=== PATIENT | male | born 1965 | race African-American/Black ===

== ENCOUNTER 2018-04-24 08:36 | Inpatient (IN) | payer OTHER ==
--- NOTE | 2018-04-24 09:26 | ER Document Report ---
ED General - General Chief Complaint: Abnormal Lab Results Stated Complaint: ABNORMAL LABS Time Seen by Provider: 04/24/18 08:59 TRAVEL OUTSIDE OF THE [place] IN LAST 30 DAYS: No - HPI Patient complains to provider of: Abnormal laboratory results Notes: Patient states that he sees GI specialist Dr. Lozoya had outpatient laboratory studies performed showing anemia and was told to come to the ER for blood transfusion. Patient states a history of anemia in the past requiring iron s tates that his PCP placed him on [id number] iron patient states he has been noticing a little bit of blood in stool and does have an appointment for a colonoscopy to be performed by Dr. Lozoya on Tuesday patient otherwise denies any overt dizziness weakness denies any chest pain abdominal pain. Patient states symptoms ongoing for greater than a week with the noticing of blood in his stool. Patient resting company upon my evaluation of fevers chills nausea vomiting diarrhea - Related Data Allergies/Adverse Reactions: No Known Allergies Allergy (Unverified 04/24/18 08:38) Past Medical History - Social History Smoking Status: Never Smoker Chew tobacco use (# tins/day): No Frequency of alcohol use: None Drug Abuse: None Family History: Reviewed & Not Pertinent Patient has suicidal ideation: No Patient has homicidal ideation: No Renal/ Medical History: Denies: Hx Peritoneal Dialysis Review of Systems - Review of Systems Constitutional: Other - Abnormal labs EENT: No symptoms reported Cardiovascular: No symptoms reported Respiratory: No symptoms reported Gastrointestinal: See HPI Genitourinary: No symptoms reported Male Genitourinary: No symptoms reported Musculoskeletal: No symptoms reported Skin: No symptoms reported Hematologic/Lymphatic: No symptoms reported Neurological/Psychological: No symptoms reported -: Yes All other systems reviewed and negative Physical Exam - Vital signs Vitals: Temp Pulse Resp BP Pulse Ox 98.4 F 83 16 123/59 L 100 04/24/18 08:41 04/24/18 08:41 04/24/18 08:41 04/24/18 08:41 04/24/18 08:41 Interpretation: Normal - General General appearance: Appears well, Alert - HEENT Head: Normocephalic, Atraumatic Eyes: Normal Pupils: PERRL - Respiratory Respiratory status: No respiratory distress Chest status: Nontender Breath sounds: Normal Chest palpation: Normal - Cardiovascular Rhythm: Regular Heart sounds: Normal auscultation Murmur: No - Abdominal Inspection: Normal Distension: No distension Bowel sounds: Normal Tenderness: Nontender Organomegaly: No organomegaly - Back Back: Normal, Nontender - Extremities General upper extremity: Normal inspection, Nontender, Normal color, Normal ROM, Normal temperature General lower extremity: Normal inspection, Nontender, Normal color, Normal ROM, Normal temperature, Normal weight bearing. No: Katty's sign - Neurological Neuro grossly intact: Yes Cognition: Normal Orientation: AAOx4 Judit Coma Scale Eye Opening: Spontaneous Judit Coma Scale Verbal: Oriented Sandstone Coma Scale Motor: Obeys Commands Sandstone Coma Scale Total: 15 Speech: Normal Motor strength normal: LUE, RUE, LLE, RLE Sensory: Normal - Psychological Associated symptoms: Normal affect, Normal mood - Skin Skin Temperature: Warm Skin Moisture: Dry Skin Color: Normal Course - Re-evaluation Re-evalutation: 04/24/18 09:26 Laboratory studies will be obtained will consult with Dr. Lozoya for a plan. 04/24/18 14:52 Hemoglobin returned at 5. Discussed with Dr. talon Cummings recommend admission to the hospital as he will scope the patient more likely next 24 hours. Patient agrees this plan discussed with Dr. Gilbert agrees with admission - Vital Signs Vital signs: Temp Pulse Resp BP Pulse Ox 98.6 F 77 19 106/77 100 04/24/18 13:57 04/24/18 14:31 04/24/18 14:31 04/24/18 14:30 04/24/18 14:31 - Laboratory Result Diagrams: 04/24/18 09:05 04/24/18 09:05 Laboratory results interpreted by me: 04/24/18 04/24/18 04/24/18 09:05 09:05 09:05 RBC 2.21 L Hgb 5.0 L* Hct 16.8 L MCV 76 L MCH 22.7 L MCHC 29.9 L RDW 16.8 H Retic Count (auto) 6.14 H Absolute Retic 0.136 H APTT TIBC 497 H Ferritin 5.45 L Crossmatch See Detail 04/24/18 09:05 RBC Hgb Hct MCV MCH MCHC RDW Retic Count (auto) Absolute Retic APTT 22.1 L TIBC Ferritin Crossmatch Discharge - Discharge Clinical Impression: Anemia requiring transfusions GI bleed Qualifiers: GI bleed type/associated pathology: unspecified gastrointestinal hemorrhage type Qualified Code(s): K92.2 - Gastrointestinal hemorrhage, unspecified Condition: Good Disposition: ADMITTED INPATIENT [facility] Unit Admitted: Telemetry
[2018-04-24 09:30] LABS: ABSOLUTE RETICS # 0.136 10^6/uL (0.028-0.122); HEMATOCRIT 16.8 % (37.9-51.0); MEAN CORPUSCULAR HEMOGLOBIN 22.7 pg (27.0-33.4); MEAN CORPUSCULAR HGB CONC 29.9 g/dL (32.0-36.0); MEAN CORPUSCULAR VOLUME 76 fl (80-97); PLATELET COUNT 426 10^3/uL (150-450); RED BLOOD COUNT 2.21 10^6/uL (4.35-5.55); RED CELL DISTRIBUTION WIDTH 16.8 % (11.5-14.0); RETICULOCYTE COUNT (AUTO) 6.14 % (0.66-2.85); WHITE BLOOD COUNT 6.1 10^3/uL (4.0-10.5)
[2018-04-24 09:40] LABS: ANION GAP 8 (5-19); BLOOD UREA NITROGEN 15 mg/dL (7-20); CALCIUM 9.3 mg/dL (8.4-10.2); CARBON DIOXIDE 28 mmol/L (22-30); CHLORIDE 105 mmol/L (98-107); GLUCOSE 102 mg/dL (75-110); IRON(TIBC) 145.4 ug/dL (49-181); POTASSIUM 4.7 mmol/L (3.6-5.0); SODIUM 141.1 mmol/L (137-145)
[2018-04-24 09:47] LABS: INTERNATIONAL RATION (INR) 1.02; PROTHROMBIN TIME 13.9 SEC (11.4-15.4)
[2018-04-24 09:48] LABS: PARTIAL THROMBOPLASTIN TIME 22.1 SEC (23.5-35.8)
[2018-04-24 09:49] LABS: ABSOLUTE LYMPHOCYTES# (MANUAL) 1.3 10^3/uL (0.5-4.7); ABSOLUTE MONOCYTES # (MANUAL) 0.5 10^3/uL (0.1-1.4); ABSOLUTE NEUTROPHILS# (MANUAL) 4.3 10^3/uL (1.7-8.2); BASOPHILS % (MANUAL) 0 % (0-2); EOSINOPHILS % (MANUAL) 0 % (0-6); LYMPHOCYTES % (MANUAL) 21 % (13-45); MONOCYTES % (MANUAL) 9 % (3-13); NUCLEATED RED BLOOD CELLS 3 /100 WBC (0); SEGMENTED NEUTROPHILS % (MAN) 70 % (42-78); TOTAL CELLS COUNTED 100
[2018-04-24 09:51] LABS: ANISOCYTOSIS 1+; HYPOCHROMASIA 2+; POLYCHROMASIA 1+
[2018-04-24 09:52] LABS: OVALOCYTES SLIGHT; POIKILOCYTOSIS SLIGHT; SCHISTOCYTES SLIGHT
[2018-04-24 09:53] LABS: PLATELET COMMENT ADEQUATE
[2018-04-24] MEDS ORDERED: NORMAL SALINE 250 ML IV PRN ×2 (09:53)
[2018-04-24 10:18] LABS: FERRITIN 5.45 ng/mL (17.9-464.0)
[2018-04-24 10:49] LABS: FOLATE > 20.00 ng/mL (>2.76)
[2018-04-24] MEDS ORDERED: PANTOPRAZOLE SODIUM 40 MG VIAL IV ONE (11:03)
[2018-04-24] MEDS ORDERED: OXYCODONE-ACETAMINOPHEN 5-325 MG TABLET PO PRN (11:21)
[2018-04-24] MEDS ORDERED: ONDANSETRON HCL INJ/PF 4 MG/2 ML SDV IV PRN (11:21)
--- NOTE | 2018-04-24 11:42 | PDOC H&P ---
History of Present Illness Admission Date/PCP: 04/24/18 11:23 History of Present Illness: JULIO JARA JR is a 52 year old male with history of GI bleed, anemia status post EGD and colonoscopy in 2008 as per the patient no obvious cause of bleed was found at that time came to the emergency room today with complaints of passing bright colored blood for the last 3 days. Denies he is using denies using aspirin or ibuprofen. He is saying he was little bit nauseated and a little bit dizzy and constipated. Denies any other complaints. The emergency room hemoglobin was found to be 5 3 units of blood transfusion was ordered medical consult was called for admission Dr. Lozoya his desktop support consultant is aware of the patient's admission. Social History Smoking Status: Never Smoker Frequency of Alcohol Use: None Hx Recreational Drug Use: No Hx Prescription Drug Abuse: No - Advance Directive Resuscitation Status: Full Code Family History Family History: Reviewed & Not Pertinent Parental Family History Reviewed: Yes Children Family History Reviewed: Yes Sibling(s) Family History Reviewed.: Yes Medication/Allergy Allergies/Adverse Reactions: No Known Allergies Allergy (Unverified 04/24/18 08:38) Review of Systems Constitutional: ABSENT: fever(s), weakness Eyes: ABSENT: visual disturbances Ears: ABSENT: hearing changes Cardiovascular: ABSENT: edema Respiratory: ABSENT: dyspnea Gastrointestinal: PRESENT: abdominal pain, constipation, nausea, other - Blood per rectum. ABSENT: diarrhea, dysphagia, melena, vomiting Neurological: ABSENT: abnormal gait, abnormal speech, confusion, dizziness, focal weakness, syncope Psychiatric: ABSENT: anxiety, depression, homidical ideation, suicidal ideation Physical Exam Vital Signs: Temp Pulse Resp BP Pulse Ox 98.4 F 83 18 106/64 100 04/24/18 08:41 04/24/18 08:41 04/24/18 10:41 04/24/18 10:41 04/24/18 10:41 Intake & Output 04/23/18 04/24/18 04/25/18 06:59 06:59 06:59 Weight 83.5 kg General appearance: PRESENT: no acute distress Head exam: PRESENT: atraumatic Eye exam: PRESENT: PERRLA, scleral icterus Mouth exam: PRESENT: dry mucosa Neck exam: ABSENT: carotid bruit, JVD, lymphadenopathy, thyromegaly Respiratory exam: PRESENT: clear to auscultation gely. ABSENT: rales, rhonchi, wheezes Cardiovascular exam: PRESENT: RRR. ABSENT: diastolic murmur, rubs, systolic murmur GI/Abdominal exam: PRESENT: normal bowel sounds, soft. ABSENT: tenderness Rectal exam: PRESENT: deferred Neurological exam: PRESENT: alert, awake, oriented to person, oriented to place, oriented to time, oriented to situation, CN II-XII grossly intact. ABSENT: motor sensory deficit Psychiatric exam: PRESENT: appropriate affect, normal mood. ABSENT: homicidal ideation, suicidal ideation Results Laboratory Results: 04/24/18 09:05 04/24/18 09:05 04/24/18 04/24/18 04/24/18 09:05 09:05 09:05 WBC 6.1 RBC 2.21 L Hgb 5.0 L* Hct 16.8 L MCV 76 L MCH 22.7 L MCHC 29.9 L RDW 16.8 H Plt Count 426 Seg Neutrophils % Not Reportable Lymphocytes % Not Reportable Monocytes % Not Reportable Eosinophils % Not Reportable Basophils % Not Reportable Absolute Neutrophils Not Reportable Absolute Lymphocytes Not Reportable Absolute Monocytes Not Reportable Absolute Eosinophils Not Reportable Absolute Basophils Not Reportable Retic Count (auto) 6.14 H Absolute Retic 0.136 H Sodium 141.1 Potassium 4.7 Chloride 105 Carbon Dioxide 28 Anion Gap 8 BUN 15 Creatinine 0.96 Est GFR ( Amer) > 60 Est GFR (Non-Af Amer) > 60 Glucose 102 Calcium 9.3 Iron 145.4 TIBC 497 H % Saturation 29 Ferritin 5.45 L Vitamin B12 270.0 Folate > 20.00 Blood Type O NEGATIVE Antibody Screen NEGATIVE Assessment & Plan - Diagnosis (1) GI bleed Qualifiers: GI bleed type/associated pathology: unspecified gastrointestinal hemorrhage type Qualified Code(s): K92.2 - Gastrointestinal hemorrhage, unspecified Is this a current diagnosis for this admission?: Yes Plan: 04/24/2018-patient is going to be admitted to telemetry. GI consult was requested. Hematology consult was requested. Patient signed the consent for blood transfusions 3 units of PRBC was recommended. Patient was started on IV Protonix 40 mg twice daily. We are going to do the labs with her on regular basis. He was placed on clear liquids thinking he may need to go for EGD/colonoscopy soon. He was only on FELIX hoses no Lovenox was given. He was placed on IV fluids normal saline at 125 cc/h. He is to check posttransfusion CBC. - Time Time Spent: 50 to 70 Minutes Critical Time spent with patient: 15-24 minutes Medications reviewed and adjusted accordingly: Yes Anticipated discharge: Home
[2018-04-24] MEDS ORDERED: IRON SUCROSE COMPLEX INJ/PF 100 MG/5 ML SDV IV ONE (13:00)
[2018-04-24] MEDS ORDERED: IRON SUCROSE COMPLEX 200 MG in NORMAL SALINE 100 ML IV ONE (14:00)
[2018-04-24] MEDS ORDERED: BISACODYL 5 MG TABEC PO ONE (21:00)
[2018-04-24] MEDS: PANTOPRAZOLE SODIUM 40 MG VIAL IV SCH (22:38)
[2018-04-25 03:43] LABS: INTERNATIONAL RATION (INR) 1.08; PROTHROMBIN TIME 14.5 SEC (11.4-15.4)
[2018-04-25 03:45] LABS: HEMATOCRIT 22.6 % (37.9-51.0); MEAN CORPUSCULAR HEMOGLOBIN 24.1 pg (27.0-33.4); MEAN CORPUSCULAR HGB CONC 32.1 g/dL (32.0-36.0); MEAN CORPUSCULAR VOLUME 75 fl (80-97); PLATELET COUNT 343 10^3/uL (150-450); RED CELL DISTRIBUTION WIDTH 17.6 % (11.5-14.0); WHITE BLOOD COUNT 6.7 10^3/uL (4.0-10.5)
[2018-04-25 03:54] LABS: ALANINE AMINOTRANSFERASE 23 U/L (21-72); ALBUMIN 3.7 g/dL (3.5-5.0); ALKALINE PHOSPHATASE 61 U/L (38-126); ANION GAP 6 (5-19); ASPARTATE AMINO TRANSFERASE 18 U/L (17-59); BILIRUBIN,DIRECT 0.1 mg/dL (0.0-0.4); BILIRUBIN,TOTAL 1.6 mg/dL (0.2-1.3); BLOOD UREA NITROGEN 12 mg/dL (7-20); CALCIUM 8.7 mg/dL (8.4-10.2); CARBON DIOXIDE 26 mmol/L (22-30); CHLORIDE 107 mmol/L (98-107); CHOLESTEROL 137.08 mg/dL (0-200); GLUCOSE 93 mg/dL (75-110); POTASSIUM 4.3 mmol/L (3.6-5.0); SODIUM 139.1 mmol/L (137-145); TOTAL PROTEIN 6.1 g/dL (6.3-8.2); TRIGLYCERIDES 100 mg/dL (<150)
[2018-04-25 04:05] LABS: DIRECT LDL 92 mg/dL (<100)
[2018-04-25 04:34] LABS: HEMOGLOBIN 7.2 g/dL (13.5-17.0)
[2018-04-25 04:39] LABS: ABSOLUTE LYMPHOCYTES# (MANUAL) 1.5 10^3/uL (0.5-4.7); ABSOLUTE MONOCYTES # (MANUAL) 0.7 10^3/uL (0.1-1.4); ABSOLUTE NEUTROPHILS# (MANUAL) 4.4 10^3/uL (1.7-8.2); BASOPHILS % (MANUAL) 0 % (0-2); EOSINOPHILS % (MANUAL) 1 % (0-6); LYMPHOCYTES % (MANUAL) 23 % (13-45); MONOCYTES % (MANUAL) 10 % (3-13); SEGMENTED NEUTROPHILS % (MAN) 66 % (42-78); TOTAL CELLS COUNTED 100
[2018-04-25 04:40] LABS: ANISOCYTOSIS 1+; HYPOCHROMASIA 1+; PLATELET COMMENT ADEQUATE; PLATELET LARGE PRESENT; POLYCHROMASIA 1+; SCHISTOCYTES 1+; TOXIC GRANULATION 1+
[2018-04-25] MEDS: NORMAL SALINE 1000 ML 1,000 ML IV PRN ×3 (05:35→21:19)
[2018-04-25] MEDS ORDERED: PEG 3350/NA SULF,BICARB,CL/KCL 4000 ML PO ONE (08:00)
[2018-04-25] MEDS: PANTOPRAZOLE SODIUM 40 MG VIAL IV SCH ×2 (09:40→21:19)
[2018-04-25 12:32] LABS: ABSOLUTE BASOPHILS # (AUTO) 0.1 10^3/uL (0.0-0.2); ABSOLUTE EOSINOPHILS # (AUTO) 0.1 10^3/uL (0.0-0.6); ABSOLUTE LYMPHOCYTES (AUTO) 1.2 10^3/uL (0.5-4.7); ABSOLUTE MONOCYTES (AUTO) 0.6 10^3/uL (0.1-1.4); ABSOLUTE NEUT (AUTO) 4.2 10^3/uL (1.7-8.2); BASOPHILS % (AUTO) 1.1 % (0-2); EOSINOPHILS % (AUTO) 2.1 % (0-6); HEMATOCRIT 29.1 % (37.9-51.0); LYMPHOCYTES % (AUTO) 19.4 % (13-45); MEAN CORPUSCULAR HEMOGLOBIN 24.8 pg (27.0-33.4); MEAN CORPUSCULAR HGB CONC 32.1 g/dL (32.0-36.0); MEAN CORPUSCULAR VOLUME 77 fl (80-97); MONOCYTES % (AUTO) 9.2 % (3-13); PLATELET COUNT 370 10^3/uL (150-450); RED BLOOD COUNT 3.75 10^6/uL (4.35-5.55); RED CELL DISTRIBUTION WIDTH 17.2 % (11.5-14.0); SEGMENTED NEUTROPHILS % (AUTO) 68.2 % (42-78); TOTAL CELLS COUNTED % (AUTO) 100 %; WHITE BLOOD COUNT 6.1 10^3/uL (4.0-10.5)
[2018-04-25 12:34] LABS: HEMOGLOBIN 9.3 g/dL (13.5-17.0)
--- NOTE | 2018-04-25 13:17 | CONSULTATION REPORT E ---
Consultation Report NAME: JULIO JARA JR : 1965 AGE: 52Y DATE: 04/25/2018 ROOM: 416 A TO: JONY QUACH M.D. FROM: LINDA AKERS MD Requesting Physician REFERRING PHYSICIAN: The patient referred by the hospitalist. REASON FOR REFERRAL: Anemia, iron deficiency. HISTORY OF PRESENT ILLNESS: The patient is a 52-year-old with anemia, most probably iron deficiency. He states he was in his usual state of health up to about 3 or 4 months ago when he started getting progressively more tired. He has also noticed black stools and blood in the stool. He had a prior episode in 2008 when he had presented with severe anemia and iron deficiency. He was on oral iron. He received iron infusion and his hemoglobin returned to normal. He was last seen in our office in 2012. At that time he had a normal hemoglobin and a low normal ferritin. He states that he has been doing very well since then with no other bleeding episodes until this most recent episode. PAST MEDICAL HISTORY: As stated above is the iron deficiency. ALLERGIES: He has no known drug allergies. SOCIAL HISTORY: He does not smoke cigarettes or drink alcohol. FAMILY HISTORY: His grandmother had throat cancer. REVIEW OF SYSTEMS: Is as stated above. PHYSICAL EXAMINATION: On exam he is a young man well-developed, well-nourished, not acutely ill-looking. ASSESSMENT AND PLAN: His labs on admission had a shown a hemoglobin of 5.5 and a low serum ferritin. He has been transfused since then and received a dose of iron infusion. He is scheduled for GI evaluation today. I encouraged him to follow up as an outpatient to finish the Venofer infusion which was started yesterday. I gave him an appointment for 2 p.m. on 05/01/18 in the office to receive his second dose of Venofer. I will see him for follow up at that time. I thank you for this consultation in allowing me to be a part of his care. DICTATING PHYSICIAN: JONY QUACH M.D. [id number] PHY#: [id number] ID: [id number] JOB#: [id number] ACCT: [id number] cc:JONY QUACH M.D. >
--- NOTE | 2018-04-25 15:07 | PDOC PROGRESS REPORT ---
Subjective Progress Note for:: 04/25/18 Subjective:: This is a 52 yr old male who presented with grossly bloody stools. He does have a previous history of hematozhezia and reported having an unremarkable EGD, colonoscopy and capsule endoscopy. He presented with a Hb of 5.0 and has received a total of 4 units of pRBC. His repeat Hb after 3 u was 7.2 and hence was given a 4th unit overnight. No other acute issues. No chest pain or SOB. No recurrence of bloody stools so far. No hematemesis. He denies abdominal pain. Denies NSAID use at home. He is scheduled for EGD and colonoscopy this afternoon by Dr. Lozoya. Reason For Visit: GI BLEED Physical Exam Vital Signs: Temp Pulse Resp BP Pulse Ox 97.7 F 69 16 113/82 100 04/25/18 11:25 04/25/18 11:25 04/25/18 11:25 04/25/18 11:25 04/25/18 11:25 Intake & Output 04/24/18 04/25/18 04/26/18 06:59 06:59 06:59 Intake Total 1510 350 Balance 1510 350 Weight 191 lb 2.252 oz General appearance: PRESENT: no acute distress, well-developed, well-nourished Head exam: PRESENT: atraumatic, normocephalic Eye exam: PRESENT: conjunctiva pink, EOMI, PERRLA. ABSENT: scleral icterus Ear exam: PRESENT: normal external ear exam Mouth exam: PRESENT: moist, tongue midline Neck exam: ABSENT: carotid bruit, JVD, lymphadenopathy, thyromegaly Respiratory exam: PRESENT: clear to auscultation gely. ABSENT: rales, rhonchi, wheezes Cardiovascular exam: PRESENT: RRR. ABSENT: diastolic murmur, rubs, systolic murmur Pulses: PRESENT: normal dorsalis pedis pul GI/Abdominal exam: PRESENT: normal bowel sounds, soft. ABSENT: distended, guarding, mass, organolmegaly, rebound, tenderness Neurological exam: PRESENT: alert, awake, oriented to person, oriented to place, oriented to time, oriented to situation, CN II-XII grossly intact. ABSENT: motor sensory deficit Results Laboratory Results: 04/25/18 11:55 04/25/18 03:22 0104/25/18 04/25/18 09:05 03:22 03:22 WBC RBC Hgb Hct MCV MCH MCHC RDW Plt Count Seg Neutrophils % Lymphocytes % Monocytes % Eosinophils % Basophils % Absolute Neutrophils Absolute Lymphocytes Absolute Monocytes Absolute Eosinophils Absolute Basophils Sodium 139.1 Potassium 4.3 Chloride 107 Carbon Dioxide 26 Anion Gap 6 BUN 12 Creatinine 1.20 Est GFR ( Amer) > 60 Est GFR (Non-Af Amer) > 60 Glucose 93 Calcium 8.7 Magnesium 2.2 Total Bilirubin 1.6 H AST 18 ALT 23 Alkaline Phosphatase 61 Total Protein 6.1 L Albumin 3.7 Triglycerides 100 Cholesterol 137.08 LDL Cholesterol Direct 92 VLDL Cholesterol 20.0 HDL Cholesterol 28 L TSH 2.66 Blood Type O NEGATIVE Antibody Screen NEGATIVE 04/25/18 04/25/18 03:22 11:55 WBC 6.7 6.1 RBC 3.00 L 3.75 L Hgb 7.2 L D 9.3 L D Hct 22.6 L 29.1 L MCV 75 L 77 L MCH 24.1 L 24.8 L MCHC 32.1 32.1 RDW 17.6 H 17.2 H Plt Count 343 370 Seg Neutrophils % Not Reportable 68.2 Lymphocytes % Not Reportable 19.4 Monocytes % Not Reportable 9.2 Eosinophils % Not Reportable 2.1 Basophils % Not Reportable 1.1 Absolute Neutrophils Not Reportable 4.2 Absolute Lymphocytes Not Reportable 1.2 Absolute Monocytes Not Reportable 0.6 Absolute Eosinophils Not Reportable 0.1 Absolute Basophils Not Reportable 0.1 Sodium Potassium Chloride Carbon Dioxide Anion Gap BUN Creatinine Est GFR ( Amer) Est GFR (Non-Af Amer) Glucose Calcium Magnesium Total Bilirubin AST ALT Alkaline Phosphatase Total Protein Albumin Triglycerides Cholesterol LDL Cholesterol Direct VLDL Cholesterol HDL Cholesterol TSH Blood Type Antibody Screen Assessment & Plan - Diagnosis (1) Acute blood loss anemia Is this a current diagnosis for this admission?: Yes Plan: Secondary to acute GI bleed. S/P 4 units of pRBCs. Repeat Hb is 9.3 from 5. Will continue to monitor H&H. (2) GI bleed Qualifiers: GI bleed type/associated pathology: unspecified gastrointestinal hemorrhage type Qualified Code(s): K92.2 - Gastrointestinal hemorrhage, unspecified Is this a current diagnosis for this admission?: Yes Plan: Continue IV Protonix. Scheduled for EGD and colonoscopy this afternoon. - Time Time Spent with patient: 25-34 minutes
[2018-04-25] MEDS ORDERED: FLUMAZENIL INJ 0.5 MG/5 ML VIAL ONE (17:05)
[2018-04-25] MEDS ORDERED: EPINEPHRINE INJ 1 MG/10 ML DISP.SYRIN ONE (17:05)
[2018-04-25] MEDS ORDERED: NALOXONE HCL INJ/PF 0.4 MG/1 ML SDV ONE (17:05)
[2018-04-25] MEDS ORDERED: GLUCAGON,HUMAN RECOMB 1 MG INJ ONE (17:05)
[2018-04-25] MEDS ORDERED: MIDAZOLAM 2 MG/2 ML INJ ONE (17:05)
[2018-04-25] MEDS ORDERED: DIPHENHYDRAMINE HCL 50 MG/ML VIAL ONE (17:05)
[2018-04-25] MEDS ORDERED: ONDANSETRON HCL INJ/PF 4 MG/2 ML SDV ONE (17:05)
[2018-04-25] MEDS ORDERED: FENTANYL CITRATE INJ/PF 100 MCG/2 ML AMPUL ONE (17:05)
--- NOTE | 2018-04-25 18:15 | PDOC CONSULTATION ---
Consultation Consult Date: 04/25/18 History of Present Illness Admission Date/PCP: 04/24/18 11:23 History of Present Illness: JULIO JARA JR is a 52 year old male Patient who was admitted with rectal bleeding and severe anemia. His hemoglobin was 5. It was seen in my office a few days ago also with rectal bleeding. He had been bleeding off and on for a week but more so within the last 2 days prior to being admitted. He has bled off and on for years. He had an EGD, colonoscopy, capsule endoscopy a few years ago that showed no definite pathology except for hemorrhoids. He denies abdominal pain, nausea, or vomiting. He has received 3 units of blood in the hospital. Past Medical History Neurological Medical History: Denies: Seizures Social History Smoking Status: Never Smoker Frequency of Alcohol Use: None Hx Recreational Drug Use: No Drugs: None Hx Prescription Drug Abuse: No - Advance Directive Resuscitation Status: Full Code Family History Family History: Reviewed & Not Pertinent Parental Family History Reviewed: No Children Family History Reviewed: NA Sibling(s) Family History Reviewed.: NA Medication/Allergy Home Medications: Ferrous Sulfate [Feosol 325 mg Tablet] 325 mg PO DAILY 04/24/18 Multivit-Min/Folic/Vit K/Lycop [Men's Multivitamin Caplet] 1 tab PO DAILY 04/24/18 Allergies/Adverse Reactions: No Known Allergies Allergy (Unverified 04/24/18 08:38) Review of Systems All systems: reviewed and no additional remarkable complaints except as stated Physical Exam Vital Signs: Temp Pulse Resp BP Pulse Ox 97.7 F 68 17 120/81 98 04/25/18 16:59 04/25/18 18:10 04/25/18 18:10 04/25/18 18:10 04/25/18 18:10 Intake & Output 04/24/18 04/25/18 04/26/18 06:59 06:59 06:59 Intake Total 1510 1350 Balance 1510 1350 Weight 86.7 kg Exam: General: Patient is alert and looks well. HEENT: There is pallor but no jaundice. PERRLA. Oropharynx normal Respiratory: No chest deformity. No respiratory distress. Chest wall palpitation was unremarkable. Breath sounds were normal Cardiovascular: Heart sounds 1 and 2 normal with no murmurs. Abdominal: Not distended. Soft and nontender. Liver and spleen not palpable. No ascites demonstrated. Bowel sounds active. Rectal examination was deferred. Extremities: No edema Neurological: Alert and oriented x4. Grossly nonfocal. Normal speech Skin: No significant rash Psychological: Normal affect Results Laboratory Results: 04/25/18 11:55 04/25/18 03:22 04/24/18 04/25/18 04/25/18 09:05 03:22 03:22 WBC RBC Hgb Hct MCV MCH MCHC RDW Plt Count Seg Neutrophils % Lymphocytes % Monocytes % Eosinophils % Basophils % Absolute Neutrophils Absolute Lymphocytes Absolute Monocytes Absolute Eosinophils Absolute Basophils Sodium 139.1 Potassium 4.3 Chloride 107 Carbon Dioxide 26 Anion Gap 6 BUN 12 Creatinine 1.20 Est GFR ( Amer) > 60 Est GFR (Non-Af Amer) > 60 Glucose 93 Calcium 8.7 Magnesium 2.2 Total Bilirubin 1.6 H AST 18 ALT 23 Alkaline Phosphatase 61 Total Protein 6.1 L Albumin 3.7 Triglycerides 100 Cholesterol 137.08 LDL Cholesterol Direct 92 VLDL Cholesterol 20.0 HDL Cholesterol 28 L TSH 2.66 Blood Type O NEGATIVE Antibody Screen NEGATIVE 04/25/18 04/25/18 03:22 11:55 WBC 6.7 6.1 RBC 3.00 L 3.75 L Hgb 7.2 L D 9.3 L D Hct 22.6 L 29.1 L MCV 75 L 77 L MCH 24.1 L 24.8 L MCHC 32.1 32.1 RDW 17.6 H 17.2 H Plt Count 343 370 Seg Neutrophils % Not Reportable 68.2 Lymphocytes % Not Reportable 19.4 Monocytes % Not Reportable 9.2 Eosinophils % Not Reportable 2.1 Basophils % Not Reportable 1.1 Absolute Neutrophils Not Reportable 4.2 Absolute Lymphocytes Not Reportable 1.2 Absolute Monocytes Not Reportable 0.6 Absolute Eosinophils Not Reportable 0.1 Absolute Basophils Not Reportable 0.1 Sodium Potassium Chloride Carbon Dioxide Anion Gap BUN Creatinine Est GFR ( Amer) Est GFR (Non-Af Amer) Glucose Calcium Magnesium Total Bilirubin AST ALT Alkaline Phosphatase Total Protein Albumin Triglycerides Cholesterol LDL Cholesterol Direct VLDL Cholesterol HDL Cholesterol TSH Blood Type Antibody Screen Assessment & Plan - Diagnosis (1) Rectal bleeding Is this a current diagnosis for this admission?: Yes Plan: The etiology for his rectal bleeding is unclear but differential diagnoses include diverticulosis, hemorrhoids, colon polyp or neoplasm. He will undergo an EGD and colonoscopy. (2) Acute blood loss anemia Is this a current diagnosis for this admission?: Yes
--- NOTE | 2018-04-25 18:18 | Operative Report ---
Operative Report DATE OF SURGERY: 04/25/18 Operative Report: Pre-op diagnosis: Rectal bleeding and severe anemia Post-op diagnosis: 1. Normal EGD 2. Large internal hemorrhoids 3. Polyps in the descending and the sigmoid colon 4. Few sigmoid diverticula Surgery: Upper endoscopy and Colonoscopy with polypectomy Medications: Versed 3mg, Fentanyl 100mcg IV push Tissue removed: Sigmoid colon polyp Procedure: After informed consent obtained from patient, patient's pharynx was sprayed with Hurricane and conscious sedation was achieved. The upper endoscope was then inserted into the esophagus under direct vision and advanced into the stomach and further into the duodenum. Detailed examination of the duodenum, stomach and the esophagus was then performed. A digital rectal examination was performed and this was unremarkable. The colonoscope was inserted into the rectum and advanced to the cecum. The appendiceal orifice and the terminal ileum were both identified. The mucosa was examined into details as the colonoscope was slowly pulled out of the patient. The endoscope was retroflexed in the rectum. Patient tolerated the procedure well. Findings Esophagus: Normal Stomach: Normal Duodenum: Normal Terminal ileum: Normal Cecum: Normal Ascending colon: Normal Transverse colon: Normal Descending colon: 4 mm polyp removed by cold polypectomy snare. Polyp could not be retrieved Sigmoid colon: 5 mm polyp removed with the cold snare. There is a few diverticuli noted in the sigmoid colon Rectum: Normal except for large internal hemorrhoids that appear irritated Plan: Await pathology. Suggest surgical consult for his large symptomatic hemorrhoids OPERATION: .
[2018-04-26 05:56] LABS: ABSOLUTE EOSINOPHILS # (AUTO) 0.2 10^3/uL (0.0-0.6); ABSOLUTE LYMPHOCYTES (AUTO) 1.2 10^3/uL (0.5-4.7); ABSOLUTE MONOCYTES (AUTO) 0.5 10^3/uL (0.1-1.4); ABSOLUTE NEUT (AUTO) 4.4 10^3/uL (1.7-8.2); BASOPHILS % (AUTO) 0.3 % (0-2); HEMATOCRIT 23.3 % (37.9-51.0); LYMPHOCYTES % (AUTO) 18.3 % (13-45); MEAN CORPUSCULAR HEMOGLOBIN 24.9 pg (27.0-33.4); MEAN CORPUSCULAR HGB CONC 32.6 g/dL (32.0-36.0); MEAN CORPUSCULAR VOLUME 77 fl (80-97); MONOCYTES % (AUTO) 8.3 % (3-13); PLATELET COUNT 309 10^3/uL (150-450); RED BLOOD COUNT 3.04 10^6/uL (4.35-5.55); RED CELL DISTRIBUTION WIDTH 17.2 % (11.5-14.0); SEGMENTED NEUTROPHILS % (AUTO) 70.1 % (42-78); TOTAL CELLS COUNTED % (AUTO) 100 %; WHITE BLOOD COUNT 6.3 10^3/uL (4.0-10.5)
[2018-04-26 06:04] LABS: HEMOGLOBIN 7.6 g/dL (13.5-17.0)
[2018-04-26 06:07] LABS: ANION GAP 5 (5-19); BLOOD UREA NITROGEN 11 mg/dL (7-20); CALCIUM 8.2 mg/dL (8.4-10.2); CARBON DIOXIDE 25 mmol/L (22-30); CHLORIDE 112 mmol/L (98-107); GLUCOSE 78 mg/dL (75-110); POTASSIUM 4.2 mmol/L (3.6-5.0); SODIUM 141.5 mmol/L (137-145)
[2018-04-26] MEDS: PANTOPRAZOLE SODIUM 40 MG VIAL IV SCH ×2 (09:06→21:33)
[2018-04-26] MEDS ORDERED: DEXTROSE 40% GEL 15 GM TUBE PO PRN ×2 (10:28)
[2018-04-26] MEDS ORDERED: GLUCAGON,HUMAN RECOMB 1 MG INJ SUBCUT PRN (10:28)
[2018-04-26] MEDS ORDERED: DEXTROSE 50%-WATER 25 GM/50 ML DISP.SYRIN IV PRN ×2 (10:28)
--- NOTE | 2018-04-26 10:28 | PDOC CONSULTATION ---
Consultation Consult Date: 04/26/18 Consult reason:: rectal bleeding, internal hemorrhoid, anemia History of Present Illness Admission Date/PCP: 04/24/18 11:23 Patient complains of: rectal bleeding, anemia History of Present Illness: JULIO JARA JR is a 52 year old male, helathy, admitted for hematochetia x 1 week after wiping following defecation and found to have anemia (H/H 5.0/16.8) on admission 2 days ago. Since then, he has received a total of 5 units of PRBC (including the one today): three on the day of admission, one yesterday, one today. A colonoscopy was done yesterday and significant for ascending and descending small (5 mm orless) polyp[s x 2, scattered sigmoid diverticulosis, and large internal hemorrhoid. He reports to have had GI workup in 2009 with EGD, colonoscopy, and capsule endoscopy with negative results. Both his sisters have anemia and one is treated with IV iron infusions. He has never had a formal anemia workup for other causes of anemia such as falciform disease or else. Current H/H is 7.6/23.3. Past Medical History Neurological Medical History: Denies: Seizures Social History Smoking Status: Never Smoker Frequency of Alcohol Use: None Hx Recreational Drug Use: No Drugs: None Hx Prescription Drug Abuse: No - Advance Directive Resuscitation Status: Full Code Family History Family History: Reviewed & Not Pertinent Parental Family History Reviewed: Yes - anemia Children Family History Reviewed: No Sibling(s) Family History Reviewed.: Yes - two sisters with anemia Medication/Allergy Home Medications: Ferrous Sulfate [Feosol 325 mg Tablet] 325 mg PO DAILY 04/24/18 Multivit-Min/Folic/Vit K/Lycop [Men's Multivitamin Caplet] 1 tab PO DAILY 04/24/18 Allergies/Adverse Reactions: No Known Allergies Allergy (Unverified 04/24/18 08:38) Physical Exam Vital Signs: Temp Pulse Resp BP Pulse Ox 97.9 F 70 20 103/65 100 04/26/18 08:58 04/26/18 08:58 04/26/18 08:58 04/26/18 08:58 04/26/18 08:58 Intake & Output 04/25/18 04/26/18 04/27/18 06:59 06:59 06:59 Intake Total 1510 4046 0 Balance 1510 4046 0 Weight 86.7 kg 86.9 kg General appearance: PRESENT: no acute distress Head exam: PRESENT: atraumatic Neck exam: PRESENT: full ROM Respiratory exam: PRESENT: clear to auscultation gely Cardiovascular exam: PRESENT: RRR GI/Abdominal exam: PRESENT: soft Rectal exam: PRESENT: other - normal tone, no masses identified, no gross blood on gloved finger Extremities exam: PRESENT: full ROM Musculoskeletal exam: PRESENT: full ROM Neurological exam: PRESENT: alert Results Laboratory Results: 04/26/18 04:36 04/26/18 04:36 04/24/18 04/25/18 04/26/18 09:05 11:55 04:36 WBC 6.1 6.3 RBC 3.75 L 3.04 L Hgb 9.3 L D 7.6 L Hct 29.1 L 23.3 L MCV 77 L 77 L MCH 24.8 L 24.9 L MCHC 32.1 32.6 RDW 17.2 H 17.2 H Plt Count 370 309 Seg Neutrophils % 68.2 70.1 Lymphocytes % 19.4 18.3 Monocytes % 9.2 8.3 Eosinophils % 2.1 3.0 Basophils % 1.1 0.3 Absolute Neutrophils 4.2 4.4 Absolute Lymphocytes 1.2 1.2 Absolute Monocytes 0.6 0.5 Absolute Eosinophils 0.1 0.2 Absolute Basophils 0.1 0.0 Sodium Potassium Chloride Carbon Dioxide Anion Gap BUN Creatinine Est GFR ( Amer) Est GFR (Non-Af Amer) Glucose Calcium Blood Type O NEGATIVE Antibody Screen NEGATIVE 04/26/18 04:36 WBC RBC Hgb Hct MCV MCH MCHC RDW Plt Count Seg Neutrophils % Lymphocytes % Monocytes % Eosinophils % Basophils % Absolute Neutrophils Absolute Lymphocytes Absolute Monocytes Absolute Eosinophils Absolute Basophils Sodium 141.5 Potassium 4.2 Chloride 112 H Carbon Dioxide 25 Anion Gap 5 BUN 11 Creatinine 1.16 Est GFR ( Amer) > 60 Est GFR (Non-Af Amer) > 60 Glucose 78 Calcium 8.2 L Blood Type Antibody Screen Assessment & Plan - Diagnosis (3) GI bleed Qualifiers: GI bleed type/associated pathology: anorectal hemorrhage Qualified Code(s): K62.5 - Hemorrhage of anus and rectum Is this a current diagnosis for this admission?: Yes (4) Rectal bleeding Is this a current diagnosis for this admission?: Yes Plan: A/ rectal bleeding large internal hemorrhoid anemia from multiple causes: GI bleeding as well as possible familial condition such as falciform anemia PLAN: Consent for stapled hemorrhoidectomy today Fleet enema prior to surgery NPO IVF procedure, risks, benefits d/w patient, he understands all the above, his questions were answered, and he decides to proceed.
[2018-04-26] MEDS ORDERED: CEFOXITIN 1 GM/D5W RTU 1 GM/50 ML RTUPB IV PRN (10:32)
[2018-04-26] MEDS ORDERED: NA PHOS,M-B/NA PHOS,DI-BA (ADULT) 133 ML ENEMA PR ONE (11:00)
[2018-04-26] MEDS ORDERED: BUPIVACAINE HCL 0.5%-EPI 1:200000 INJ/PF 30 ML VIAL ONE ×2 (11:48→12:42)
[2018-04-26] MEDS ORDERED: LIDOCAINE 1% INJ-PF (10 MG/ML) 30 ML SDV ONE (11:48)
[2018-04-26] MEDS: NORMAL SALINE 1000 ML 1,000 ML IV PRN (11:55)
[2018-04-26] MEDS ORDERED: FENTANYL CITRATE INJ/PF 100 MCG/2 ML AMPUL ONE (12:42)
[2018-04-26] MEDS ORDERED: PROPOFOL INJ 200 MG/20 ML VIAL IV ONE (12:43)
[2018-04-26] MEDS ORDERED: ONDANSETRON HCL INJ/PF 4 MG/2 ML SDV ONE (12:43)
[2018-04-26] MEDS ORDERED: MIDAZOLAM 2 MG/2 ML INJ ONE ×2 (12:43→14:14)
[2018-04-26] MEDS ORDERED: LIDOCAINE 2% JELLY 30 ML TUBE ONE (13:21)
[2018-04-26] MEDS ORDERED: ONDANSETRON HCL INJ/PF 4 MG/2 ML SDV IV PRN ×2 (13:24→14:37)
[2018-04-26] MEDS ORDERED: DIPHENHYDRAMINE HCL 50 MG/ML VIAL IV PRN (13:24)
[2018-04-26] MEDS ORDERED: MEPERIDINE HCL/PF INJ 25 MG/1 ML DISP.SYRIN IV PRN (13:24)
[2018-04-26] MEDS ORDERED: FENTANYL CITRATE INJ/PF 100 MCG/2 ML AMPUL IV PRN ×3 (13:24)
--- NOTE | 2018-04-26 13:55 | PDOC PROGRESS REPORT ---
Subjective Progress Note for:: 04/26/18 Subjective:: This is a 52 yr old male who presented with grossly bloody stools. He does have a previous history of hematozhezia and reported having an unremarkable EGD, colonoscopy and capsule endoscopy. He presented with a Hb of 5.0 and has received a total of 4 units of pRBC. S/P EGD and colonoscopy on 04/25/18. EGD was normal. Colonoscopy showed polyps in the descending and the sigmoid colon and few sigmoid diverticula and a large internal hemorrhoid deemed by GI to be the likely source of bleeding. GI has recommended surgery consultation for intervention of symptomatic hemorrhoids. Patient did have 4 episodes of bright red bloody stools just prior to procedures yesterday afternoon and his Hb dropped to 7.6 Another u of pRBC was ordered. He is currently getting his 5th unit of pRBC. He has been evaluated by surgery and is scheduled for stapled hemorrhoidectomy later today. He denies any other complaint. No recurrence of bloody stools this morning. Denies abdominal pain. Reason For Visit: GI BLEED Physical Exam Vital Signs: Temp Pulse Resp BP Pulse Ox 98.0 F 68 16 103/60 100 04/26/18 11:35 04/26/18 11:35 04/26/18 11:35 04/26/18 11:35 04/26/18 11:35 Intake & Output 04/25/18 04/26/18 04/27/18 06:59 06:59 06:59 Intake Total 1510 4046 350 Output Total 0 Balance 1510 4046 350 Weight 191 lb 2.252 oz 191 lb 9.307 oz General appearance: PRESENT: no acute distress, well-developed, well-nourished Head exam: PRESENT: atraumatic, normocephalic Eye exam: PRESENT: conjunctiva pink, EOMI, PERRLA. ABSENT: scleral icterus Ear exam: PRESENT: normal external ear exam Mouth exam: PRESENT: moist, tongue midline Neck exam: ABSENT: carotid bruit, JVD, lymphadenopathy, thyromegaly Respiratory exam: PRESENT: clear to auscultation gely. ABSENT: rales, rhonchi, wheezes Cardiovascular exam: PRESENT: RRR. ABSENT: diastolic murmur, rubs, systolic murmur Pulses: PRESENT: normal dorsalis pedis pul GI/Abdominal exam: PRESENT: normal bowel sounds, soft. ABSENT: distended, guarding, mass, organolmegaly, rebound, tenderness Rectal exam: PRESENT: deferred Neurological exam: PRESENT: alert, awake, oriented to person, oriented to place, oriented to time, oriented to situation, CN II-XII grossly intact. ABSENT: motor sensory deficit Results Laboratory Results: 04/26/18 04:36 04/26/18 04:36 04/24/18 04/26/18 04/26/18 09:05 04:36 04:36 WBC 6.3 RBC 3.04 L Hgb 7.6 L Hct 23.3 L MCV 77 L MCH 24.9 L MCHC 32.6 RDW 17.2 H Plt Count 309 Seg Neutrophils % 70.1 Lymphocytes % 18.3 Monocytes % 8.3 Eosinophils % 3.0 Basophils % 0.3 Absolute Neutrophils 4.4 Absolute Lymphocytes 1.2 Absolute Monocytes 0.5 Absolute Eosinophils 0.2 Absolute Basophils 0.0 Sodium 141.5 Potassium 4.2 Chloride 112 H Carbon Dioxide 25 Anion Gap 5 BUN 11 Creatinine 1.16 Est GFR ( Amer) > 60 Est GFR (Non-Af Amer) > 60 Glucose 78 Calcium 8.2 L Blood Type O NEGATIVE Antibody Screen NEGATIVE Assessment & Plan - Diagnosis (1) Acute blood loss anemia Is this a current diagnosis for this admission?: Yes Plan: Secondary to acute GI bleed. S/P 4 units of pRBCs. Currently getting his 5th u of pRBC. Will continue to monitor H&H. (2) GI bleed Qualifiers: GI bleed type/associated pathology: anorectal hemorrhage Qualified Code(s): K62.5 - Hemorrhage of anus and rectum Is this a current diagnosis for this admission?: Yes Plan: S/P EGD and colonoscopy on 04/25/18. EGD was normal. Colonoscopy showed polyps in the descending and the sigmoid colon and few sigmoid diverticula and a large internal hemorrhoid deemed by GI to be the likely source of bleeding. GI has recommended surgery consultation for intervention of symptomatic hemorrhoids. He is scheduled for stapled hemorrhoidectomy later today. - Time Time Spent with patient: 25-34 minutes
[2018-04-26] MEDS ORDERED: NORMAL SALINE 1000 ML 1,000 ML IV PRN (14:26)
--- NOTE | 2018-04-26 14:26 | Operative Report ---
Nonrecallable Operative Report DATE OF SURGERY: 04/26/18 PREOPERATIVE DIAGNOSIS: internal hemorrhoids. anemia. hematochetia. sigmoid diverticulosis. R and L colon polyp < 1.o cm each POSTOPERATIVE DIAGNOSIS: same OPERATION: stapled hemorrhoidectomy SURGEON: LORAINE BOGGS ANESTHESIA: Spinal - plus 40 mL 0.5% marcaine with epinephrine TISSUE REMOVED OR ALTERED: rectal mucosa COMPLICATIONS: none ESTIMATED BLOOD LOSS: < 5 mL INTRAOPERATIVE FINDINGS: internal hemorrhoid PROCEDURE: see dictation
[2018-04-26] MEDS ORDERED: DIPHENHYDRAMINE HCL 50 MG/ML VIAL ONE (14:27)
--- NOTE | 2018-04-26 14:37 | OPERATIVE REPORT E ---
Operative Report NAME: JULIO JARA JR : 1965 AGE: 52Y DATE OF SURGERY: 04/26/2018 ROOM: 416 PREOPERATIVE DIAGNOSES: 1. Anemia. 2. Lower gastrointestinal bleeding. 3. Internal hemorrhoid. 4. Sigmoid diverticulosis. 5. Right and left colon polyp less than 1 cm each. POSTOPERATIVE DIAGNOSES: 1. Anemia. 2. Lower gastrointestinal bleeding. 3. Internal hemorrhoid. 4. Sigmoid diverticulosis. 5. Right and left colon polyp less than 1 cm each. OPERATION: Stapled hemorrhoidectomy. SURGEON: LORAINE BOGGS M.D. PROGRAM MANAGEMENT PROFESSIONAL: None. ANESTHESIA: Spinal and IV sedation plus 40 mL of 0.5% Marcaine with epinephrine as local. ESTIMATED BLOOD LOSS: Less than 5 mL. COMPLICATIONS: None. INDICATIONS AND FINDINGS: Healthy young 52-year-old male who presented to the emergency room 3 days ago complaining of hematochezia during defecation. The patient was found to be anemic with hemoglobin and hematocrit of 7 and 23. The patient was transfused a total of 5 units of blood and underwent a colonoscopy yesterday which demonstrated 1 right and 1 left colon polyp less than 1 cm in size removed, sigmoid diverticulosis, and large internal hemorrhoid. The patient also has a family history of anemia; both his sisters have anemia, 1 is receiving IV iron. Therefore, the patient is scheduled to undergo hemorrhoidectomy today, but he was also counseled to follow up with a breeding manager to identify possible family cause for his anemia. Procedure, risks, benefits, complications were explained to the patient, who understands this and has decided to proceed with stapled hemorrhoidectomy. DESCRIPTION OF PROCEDURE: The patient was taken to the operating room. The patient was placed in a prone jackknife position following spinal anesthesia induced by the anesthesiologist and IV sedation. The areas of perianal and perineum were prepped and draped in the usual fashion. The buttocks were spread with tape. Digital exam of the rectum was done with 2 fingers. Following this a large rectal dilator with bullet was inserted into the rectum, secured into the perianal with silk sutures, the bullet was removed. A pursestring 0-Prolene suture was placed at the level of the dentate line proximal to the internal hemorrhoid. The slotted rectal dilator was removed. The suture was then tethered through the pin of the anvil which was then pushed proximally into the rectum proximal to the pursestring suture which was then tied around the pin of the anvil. The suture was then divided to length and the anvil was then connected to the stapler which was then approximated until a green indicator was obtained, maintaining the stapler in a stable position for about 3 minutes, fired, kept in a stable position for an additional 3 minutes, and finally released. A good staple line could be observed. The stapler was then opened and a good intact donut was obtained. This was sent to pathology for examination. The rectum was then irrigated with about 200 mL of normal saline mixed with Betadine solution. Following this the rectum was packed with a large piece of Surgicel, Gelfoam, and 2% lidocaine gel. A sterile dressing was applied on top of the perianum. The patient tolerated the procedure well and was transferred to the recovery room in satisfactory condition. DICTATING PHYSICIAN: LORAINE BOGGS M.D. [id number] [id number] [id number] JOB#: [id number] ACCT: [id number] cc:LORAINE BOGGS M.D. > MTDD
[2018-04-26] MEDS ORDERED: ZINC OXIDE 20% OINTMENT 28.35 GM TP PRN (14:42)
[2018-04-26] MEDS ORDERED: LIDOCAINE 2% JELLY 5 ML TUBE TOP PRN (15:09)
[2018-04-26] MEDS ORDERED: HALOPERIDOL LACTATE INJ 5 MG/1 ML VIAL IV PRN (15:49)
[2018-04-26] MEDS: FERROUS SULFATE 325 MG TABLET PO SCH (17:51)
--- NOTE | 2018-04-26 17:56 | EKG REPORT ---
SEVERITY:- ABNORMAL ECG - SINUS RHYTHM LVH WITH SECONDARY REPOLARIZATION ABNORMALITY ABNORMAL T, PROBABLE ISCHEMIA, LATERAL LEADS : Confirmed by: Patricia Gifford 26-Apr-2018 17:55:07
[2018-04-26] MEDS ORDERED: LIDOCAINE 2% JELLY 5 ML TUBE TOP SCH (18:00)
[2018-04-26 18:06] LABS: APPEARANCE,URINE CLEAR; BILIRUBIN,URINE NEGATIVE (NEGATIVE); COLOR,URINE YELLOW; GLUCOSE, URINE NEGATIVE (NEGATIVE); KETONES,URINE NEGATIVE (NEGATIVE); LEUKOCYTE ESTERASE,URINE NEGATIVE (NEGATIVE); NITRITE,URINE NEGATIVE (NEGATIVE); PROTEIN,URINE NEGATIVE (NEGATIVE); URINE SPECIFIC GRAVITY 1.009; UROBILINOGEN,URINE NEGATIVE mg/dL (<2.0)
[2018-04-26 18:18] LABS: ABSOLUTE BASOPHILS # (AUTO) 0.1 10^3/uL (0.0-0.2); ABSOLUTE EOSINOPHILS # (AUTO) 0.1 10^3/uL (0.0-0.6); ABSOLUTE LYMPHOCYTES (AUTO) 1.3 10^3/uL (0.5-4.7); ABSOLUTE MONOCYTES (AUTO) 0.5 10^3/uL (0.1-1.4); ABSOLUTE NEUT (AUTO) 4.2 10^3/uL (1.7-8.2); BASOPHILS % (AUTO) 0.9 % (0-2); EOSINOPHILS % (AUTO) 1.4 % (0-6); HEMATOCRIT 25.8 % (37.9-51.0); HEMOGLOBIN 8.4 g/dL (13.5-17.0); LYMPHOCYTES % (AUTO) 21.3 % (13-45); MEAN CORPUSCULAR HEMOGLOBIN 25.8 pg (27.0-33.4); MEAN CORPUSCULAR HGB CONC 32.5 g/dL (32.0-36.0); MEAN CORPUSCULAR VOLUME 80 fl (80-97); MONOCYTES % (AUTO) 7.9 % (3-13); PLATELET COUNT 307 10^3/uL (150-450); RED BLOOD COUNT 3.24 10^6/uL (4.35-5.55); RED CELL DISTRIBUTION WIDTH 17.8 % (11.5-14.0); SEGMENTED NEUTROPHILS % (AUTO) 68.5 % (42-78); TOTAL CELLS COUNTED % (AUTO) 100 %; WHITE BLOOD COUNT 6.2 10^3/uL (4.0-10.5)
[2018-04-26] MEDS: FAMOTIDINE 20 MG TABLET PO SCH (21:33)
[2018-04-27 06:49] LABS: ABSOLUTE EOSINOPHILS # (AUTO) 0.1 10^3/uL (0.0-0.6); ABSOLUTE LYMPHOCYTES (AUTO) 0.9 10^3/uL (0.5-4.7); ABSOLUTE MONOCYTES (AUTO) 0.5 10^3/uL (0.1-1.4); ABSOLUTE NEUT (AUTO) 5.4 10^3/uL (1.7-8.2); BASOPHILS % (AUTO) 0.4 % (0-2); EOSINOPHILS % (AUTO) 0.8 % (0-6); HEMATOCRIT 23.9 % (37.9-51.0); MEAN CORPUSCULAR HEMOGLOBIN 25.5 pg (27.0-33.4); MEAN CORPUSCULAR VOLUME 80 fl (80-97); MONOCYTES % (AUTO) 7.1 % (3-13); PLATELET COUNT 259 10^3/uL (150-450); RED BLOOD COUNT 2.99 10^6/uL (4.35-5.55); RED CELL DISTRIBUTION WIDTH 17.5 % (11.5-14.0); SEGMENTED NEUTROPHILS % (AUTO) 78.7 % (42-78); TOTAL CELLS COUNTED % (AUTO) 100 %; WHITE BLOOD COUNT 6.8 10^3/uL (4.0-10.5)
[2018-04-27 07:07] LABS: ANION GAP 7 (5-19); BLOOD UREA NITROGEN 8 mg/dL (7-20); CALCIUM 8.4 mg/dL (8.4-10.2); CARBON DIOXIDE 23 mmol/L (22-30); CHLORIDE 108 mmol/L (98-107); GLUCOSE 124 mg/dL (75-110); POTASSIUM 3.9 mmol/L (3.6-5.0); SODIUM 137.8 mmol/L (137-145)
[2018-04-27 07:11] LABS: HEMOGLOBIN 7.6 g/dL (13.5-17.0)
--- NOTE | 2018-04-27 09:19 | PDOC PROGRESS REPORT ---
Subjective Progress Note for:: 04/27/18 Subjective:: no c/o Reason For Visit: GI BLEED Physical Exam Vital Signs: Temp Pulse Resp BP Pulse Ox 98.7 F 72 16 121/67 97 04/27/18 07:23 04/27/18 07:23 04/27/18 07:23 04/27/18 07:23 04/27/18 07:23 Intake & Output 04/26/18 04/27/18 04/28/18 06:59 06:59 06:59 Intake Total 4046 3447 Output Total 1184 Balance 4046 2263 Weight 86.9 kg 87.7 kg Rectal exam: PRESENT: other - perianum normal, no erythema Results Laboratory Results: 04/27/18 06:02 04/27/18 06:02 04/26/18 04/26/18 04/27/18 17:50 18:05 06:02 WBC 6.2 6.8 RBC 3.24 L 2.99 L Hgb 8.4 L 7.6 L Hct 25.8 L 23.9 L MCV 80 80 MCH 25.8 L 25.5 L MCHC 32.5 32.0 RDW 17.8 H 17.5 H Plt Count 307 259 Seg Neutrophils % 68.5 78.7 H Lymphocytes % 21.3 13.0 Monocytes % 7.9 7.1 Eosinophils % 1.4 0.8 Basophils % 0.9 0.4 Absolute Neutrophils 4.2 5.4 Absolute Lymphocytes 1.3 0.9 Absolute Monocytes 0.5 0.5 Absolute Eosinophils 0.1 0.1 Absolute Basophils 0.1 0.0 Sodium Potassium Chloride Carbon Dioxide Anion Gap BUN Creatinine Est GFR ( Amer) Est GFR (Non-Af Amer) Glucose Calcium Urine Color YELLOW Urine Appearance CLEAR Urine pH 6.0 Ur Specific Rex 1.009 Urine Protein NEGATIVE Urine Glucose (UA) NEGATIVE Urine Ketones NEGATIVE Urine Blood NEGATIVE Urine Nitrite NEGATIVE Ur Leukocyte Esterase NEGATIVE Urine WBC (Auto) 1 Urine RBC (Auto) 0 04/27/18 06:02 WBC RBC Hgb Hct MCV MCH MCHC RDW Plt Count Seg Neutrophils % Lymphocytes % Monocytes % Eosinophils % Basophils % Absolute Neutrophils Absolute Lymphocytes Absolute Monocytes Absolute Eosinophils Absolute Basophils Sodium 137.8 Potassium 3.9 Chloride 108 H Carbon Dioxide 23 Anion Gap 7 BUN 8 Creatinine 1.21 Est GFR ( Amer) > 60 Est GFR (Non-Af Amer) > 60 Glucose 124 H Calcium 8.4 Urine Color Urine Appearance Urine pH Ur Specific Rex Urine Protein Urine Glucose (UA) Urine Ketones Urine Blood Urine Nitrite Ur Leukocyte Esterase Urine WBC (Auto) Urine RBC (Auto) Assessment & Plan - Diagnosis (3) GI bleed Qualifiers: GI bleed type/associated pathology: anorectal hemorrhage Qualified Code(s): K62.5 - Hemorrhage of anus and rectum Is this a current diagnosis for this admission?: Yes (4) Rectal bleeding Is this a current diagnosis for this admission?: Yes - Plan Summary Plan Summary: A/ events noted no General Surgery issues identified P/ Patient can be discharged to home as per my viewpoint see orders written in 04/26/18 note
[2018-04-27] MEDS ORDERED: ENOXAPARIN SODIUM INJ 40 MG/0.4 ML DISP.SYRIN SUBCUT SCH (10:00)
[2018-04-27] MEDS ORDERED: MULTIVIT MIN PO SCH (10:00)
[2018-04-27] MEDS ORDERED: LYCOP PO SCH (10:00)
[2018-04-27] MEDS ORDERED: FOLIC PO SCH (10:00)
[2018-04-27] MEDS ORDERED: MULTIVITAMIN TABLET PO SCH (10:00)
[2018-04-27] MEDS ORDERED: VIT K PO SCH (10:00)
[2018-04-27] MEDS ORDERED: [UNRECOGNIZED DRUG - OTHER] PO SCH (10:00)
[2018-04-27] MEDS: PANTOPRAZOLE SODIUM 40 MG VIAL IV SCH (10:28)
[2018-04-27] MEDS: FERROUS SULFATE 325 MG TABLET PO SCH (10:28)
[2018-04-27] MEDS: FAMOTIDINE 20 MG TABLET PO SCH (10:28)
[2018-04-27 13:34] LABS: HEMOGLOBIN 8.5 g/dL (13.5-17.0); MEAN CORPUSCULAR HEMOGLOBIN 25.7 pg (27.0-33.4); MEAN CORPUSCULAR HGB CONC 32.7 g/dL (32.0-36.0); MEAN CORPUSCULAR VOLUME 79 fl (80-97); PLATELET COUNT 276 10^3/uL (150-450); RED BLOOD COUNT 3.31 10^6/uL (4.35-5.55); RED CELL DISTRIBUTION WIDTH 18.6 % (11.5-14.0); WHITE BLOOD COUNT 7.4 10^3/uL (4.0-10.5)
[2018-04-27 15:50] VITALS: BP 103/60
--- NOTE | 2018-04-27 16:19 | PDOC DISCHARGE SUMMARY ---
General - Admit/Disc Date/PCP Admission Date/Primary Care Provider: 04/24/18 11:23 Discharge Date: 04/27/18 - Discharge Diagnosis (1) Acute blood loss anemia Is this a current diagnosis for this admission?: Yes (2) GI bleed Is this a current diagnosis for this admission?: Yes - Additional Information Resuscitation Status: Full Code Prescriptions: Ferrous Sulfate [Feosol 325 mg Tablet] 325 mg PO DAILY #60 tablet Sennosides/Docusate 8.6-50 mg [Senna Plus Tablet] 1 tab PO DAILY PRN #30 tablet PRN Reason: Home Medications: Multivit-Min/Folic/Vit K/Lycop [Men's Multivitamin Caplet] 1 tab PO DAILY 04/24/18 Ferrous Sulfate [Feosol 325 mg Tablet] 325 mg PO DAILY #60 tablet 04/27/18 Sennosides/Docusate 8.6-50 mg [Senna Plus Tablet] 1 tab PO DAILY PRN #30 tablet 04/27/18 History of Present Illness History of Present Illness: Admitting hospitalist's H&P; JULIO JARA is a 52 year old male with history of GI bleed, anemia status post EGD and colonoscopy in 2008 as per the patient no obvious cause of bleed was found at that time came to the emergency room today with complaints of passing bright colored blood for the last 3 days. Denies he is using denies using aspirin or ibuprofen. He is saying he was little bit nauseated and a little bit dizzy and constipated. Denies any other complaints. The emergency room hemoglobin was found to be 5 3 units of blood transfusion was ordered medical consult was called for admission Dr. Lozoya his senior brand manager is aware of the patient's admission. Hospital Course Hospital Course: This is a 52 yr old male who presented with grossly bloody stools. He says he had a previous history of hematochezia and reported having an unremarkable EGD, colonoscopy and capsule endoscopy by GI. He presented with a Hb of 5.0 and has received a total of 5 units of pRBC. He was seen by GI and patient underwent EGD and colonoscopy on 04/25/18. EGD was normal. Colonoscopy showed polyps in the descending and the sigmoid colon and few sigmoid diverticula. Polyps were removed (pending pathology). Also showed a large internal hemorrhoid deemed by GI to be the likely source of bleeding. GI recommended surgery consultation for intervention of symptomatic hemorrhoids. He was evaluated by surgery and underwent stapled hemorrhoidectomy. He did not have recurrence of bloody stools. His hemoglobin did stabilize at 8.5. He will be discharged and continued on his iron supplements. He will ff-up with Dr. Lozoya, his GI, and surgery. He was also given an appt with a new PCP. Physical Exam Vital Signs: Temp Pulse Resp BP Pulse Ox 98.9 F 75 16 131/76 H 100 04/27/18 11:24 04/27/18 11:24 04/27/18 11:24 04/27/18 11:24 04/27/18 11:24 Intake & Output 04/26/18 04/27/18 04/28/18 06:59 06:59 06:59 Intake Total 4046 3447 Output Total 1184 Balance 4046 2263 Weight 191 lb 9.307 oz 193 lb 5.526 oz General appearance: PRESENT: no acute distress, well-developed, well-nourished Head exam: PRESENT: atraumatic, normocephalic Eye exam: PRESENT: conjunctiva pink, EOMI, PERRLA. ABSENT: scleral icterus Ear exam: PRESENT: normal external ear exam Mouth exam: PRESENT: moist, tongue midline Neck exam: ABSENT: carotid bruit, JVD, lymphadenopathy, thyromegaly Respiratory exam: PRESENT: clear to auscultation gely. ABSENT: rales, rhonchi, wheezes Cardiovascular exam: PRESENT: RRR. ABSENT: diastolic murmur, rubs, systolic murmur Pulses: PRESENT: normal dorsalis pedis pul GI/Abdominal exam: PRESENT: normal bowel sounds, soft. ABSENT: distended, guarding, mass, organolmegaly, rebound, tenderness Rectal exam: PRESENT: deferred Neurological exam: PRESENT: alert, awake, oriented to person, oriented to place, oriented to time, oriented to situation, CN II-XII grossly intact. ABSENT: motor sensory deficit Results Laboratory Results: 04/27/18 13:10 04/27/18 06:02 04/26/18 04/26/18 04/27/18 17:50 18:05 06:02 WBC 6.2 6.8 RBC 3.24 L 2.99 L Hgb 8.4 L 7.6 L Hct 25.8 L 23.9 L MCV 80 80 MCH 25.8 L 25.5 L MCHC 32.5 32.0 RDW 17.8 H 17.5 H Plt Count 307 259 Seg Neutrophils % 68.5 78.7 H Lymphocytes % 21.3 13.0 Monocytes % 7.9 7.1 Eosinophils % 1.4 0.8 Basophils % 0.9 0.4 Absolute Neutrophils 4.2 5.4 Absolute Lymphocytes 1.3 0.9 Absolute Monocytes 0.5 0.5 Absolute Eosinophils 0.1 0.1 Absolute Basophils 0.1 0.0 Sodium Potassium Chloride Carbon Dioxide Anion Gap BUN Creatinine Est GFR ( Amer) Est GFR (Non-Af Amer) Glucose Calcium Urine Color YELLOW Urine Appearance CLEAR Urine pH 6.0 Ur Specific Gary 1.009 Urine Protein NEGATIVE Urine Glucose (UA) NEGATIVE Urine Ketones NEGATIVE Urine Blood NEGATIVE Urine Nitrite NEGATIVE Ur Leukocyte Esterase NEGATIVE Urine WBC (Auto) 1 Urine RBC (Auto) 0 04/27/18 04/27/18 06:02 13:10 WBC 7.4 RBC 3.31 L Hgb 8.5 L Hct 26.0 L MCV 79 L MCH 25.7 L MCHC 32.7 RDW 18.6 H Plt Count 276 Seg Neutrophils % Lymphocytes % Monocytes % Eosinophils % Basophils % Absolute Neutrophils Absolute Lymphocytes Absolute Monocytes Absolute Eosinophils Absolute Basophils Sodium 137.8 Potassium 3.9 Chloride 108 H Carbon Dioxide 23 Anion Gap 7 BUN 8 Creatinine 1.21 Est GFR ( Amer) > 60 Est GFR (Non-Af Amer) > 60 Glucose 124 H Calcium 8.4 Urine Color Urine Appearance Urine pH Ur Specific Gary Urine Protein Urine Glucose (UA) Urine Ketones Urine Blood Urine Nitrite Ur Leukocyte Esterase Urine WBC (Auto) Urine RBC (Auto) Qualifiers - * PATIENT BEING DISCHARGED WITH ANY OF THE FOLLOWING DIAGNOSIS: No
== END 2018-04-27 16:25 | disposition home or self-care (01) | DRG 348 ==
LOC: ER 08:36 → EH 11:23 → 4W 16:40
PROVIDERS: ADMIT Internal Medicine; ATTEND Internal Medicine
PROC: 30233N1 Transfusion of Nonautologous Red Blood Cells into Peripheral Vein, Percutaneous Approach (ICD-10-PCS; principal; 2018-04-24)
PROC: 30233N1 Transfusion of Nonautologous Red Blood Cells into Peripheral Vein, Percutaneous Approach (ICD-10-PCS; 2018-04-25)
PROC: 0DJ08ZZ Inspection of Upper Intestinal Tract, Via Natural or Artificial Opening Endoscopic (ICD-10-PCS; 2018-04-25)
PROC: 0DBM8ZX Excision of Descending Colon, Via Natural or Artificial Opening Endoscopic, Diagnostic (ICD-10-PCS; 2018-04-25)
PROC: 06BY4ZC Excision of Hemorrhoidal Plexus, Percutaneous Endoscopic Approach (ICD-10-PCS; 2018-04-26)
PROC: 30233N1 Transfusion of Nonautologous Red Blood Cells into Peripheral Vein, Percutaneous Approach (ICD-10-PCS; 2018-04-26)
DX: K64.8 Other hemorrhoids (principal); D62 Acute posthemorrhagic anemia; K62.5 Hemorrhage of anus and rectum; K63.5 Polyp of colon; K57.30 Diverticulosis of large intestine without perforation or abscess without bleeding
CPT/HCPCS: 36415; 36430; 43235; 45385; 80048; 80053; 80061; 81001; 82607; 82728; 82746; 83540; 83550; 83735; 84443; 85025; 85027; 85045; 85610; 85730; 86850; 86900; 86901; 86920; 88304; 88305; 902; 93005; 93010; 96374; 99284; J0171; J1200; J1610; J1756; J2250; J2310; J2405; J2704; J3010; J3490; J7030; P9016; S0164